=== PATIENT | male | born 1950 | race Caucasian/White ===

== ENCOUNTER 2016-04-03 12:13 | Emergency (ER) | payer MEDICARE, OTHER ==
[~2016-04-03] VITALS: Ht 170.2 cm; Wt 68.2 kg
[~2016-04-03 12:13] MED LIST: ACETAMINOPHEN W1 TA6 PO; ALLERGY4 MG PO; BENADRYL25 M1 PO; BENZTROPINE1 MG PO; BROMOCRIPTINE2.5 MG PO; FLEXERIL 1010 MG/TAB PO; HALDOL 5MG T5 MG/TAB PO; HALDOL5 MG PO; LEVOTHYROXIN0.088 MG PO; NORCO 325 MG-51 TAB PO; PROPRANOLOL10 MG PO; PROVENTIL0.09 MG/A1 IH; TRILEPTAL 150M150 MG; ULTRAM 50MG TAB50 MG PO; ZITHROMAX Z PA250 MG PO
[2016-04-03 12:16] VITALS: TEMP 98.4
[2016-04-03 13:05] LABS: ADJUSTED CALCIUM 9.1 mg/dL (8.4-10.2); ALANINE AMINOTRANSFERASE 43 U/L (21-72); ALBUMIN 4.2 gm/dL (3.5-5.0); ALKALINE PHOSPHATASE 85 U/L (50-136); ANION GAP 10 mmol/L (7-16); BASO # 0.1 (0.0-0.2); BASO % 1.2 % (0.0-2.0); BILIRUBIN,TOTAL 0.9 mg/dL (0.0-1.0); BLOOD UREA NITROGEN 14 mg/dL (9-20); CALCIUM 9.3 mg/dL (8.4-10.2); CARBON DIOXIDE 25 mmol/L (22-30); CHLORIDE 103 mmol/L (98-107); CREATINE KINASE 45 U/L (55-170); CREATININE, serum 1.11 mg/dL (0.66-1.25); EOS # 0.4 (0.0-0.7); EOS % 5.8 % (0-4.0); GLUCOSE 155 mg/dL (74-106); GRAN # 3.3 (1.4-6.5); GRAN % 55.3 % (42.2-75.2); HEMOGLOBIN 14.5 g/dl (13.5-18.0); LIPASE 134 U/L (23-300); LYMPH # 1.9 (1.2-3.4); LYMPH % 31.1 % (20.0-51.0); MEAN CELL VOLUME 95 fl (80.0-100.0); MEAN CORPUSCULAR HEMOGLOBIN 34 pg (27.0-31.0); MEAN CORPUSCULAR HGB CONC 35 g/dl (33.0-37.0); MONO # 0.4 (0.1-0.6); MONO % 6.3 % (1.7-9.3); PLATELET COUNT 183 K/mm3 (130-400); POTASSIUM 3.7 mmol/L (3.4-5.0); REDCELL DISTRIBUTION WIDTH-CV 12.7 % (11.5-14.5); SODIUM 138 mmol/L (137-145); TOTAL PROTEIN 7.3 gm/dL (6.4-8.2)
[2016-04-03 13:17] LABS: B-TYPE NATRIURETIC PEPTIDE 29 pg/mL (0-125)
[2016-04-03 13:20] LABS: TROPONIN-I < 0.012 ng/mL (0.000-0.034)
[2016-04-03] MEDS ORDERED: NAPROSYN500 MG PO (14:00)
[2016-04-03 14:58] VITALS: BP 118/77; PULSE 75
== END 2016-04-03 15:10 | disposition home or self-care (01) ==
LOC: COL.ER 12:13
PROVIDERS: Emergency Medicine
DX: R07.9 Chest pain, unspecified (principal)
CPT/HCPCS: J1885

== ENCOUNTER → 2016-07-10 | Outpatient (CLI) | payer MEDICARE, OTHER ==
[~2016-07-10] MED LIST changes: +NAPROSYN500 MG PO
== END ==
LOC: BHSO 13:53
DX: F20.9 Schizophrenia, unspecified (principal)

== ENCOUNTER → 2017-01-15 | Outpatient (CLI) | payer MEDICARE, OTHER | LOC: BHSO 13:37 | DX: F20.9 Schizophrenia, unspecified (principal) ==

== ENCOUNTER → 2017-08-18 | Outpatient (CLI) | payer MEDICARE, OTHER | LOC: BHSO 13:58 | DX: F25.0 Schizoaffective disorder, bipolar type (principal) | CPT/HCPCS: G0463 ==

== ENCOUNTER → 2017-09-15 | Outpatient (CLI) | payer MEDICARE, OTHER | LOC: MC.RAD 13:15 | DX: N62 Hypertrophy of breast (principal) ==

== ENCOUNTER → 2018-08-12 | Outpatient (CLI) | payer MEDICARE, OTHER | LOC: BHSO 01-12 14:07 | DX: F20.9 Schizophrenia, unspecified (principal) | CPT/HCPCS: G0463 ==

== ENCOUNTER 2018-11-21 15:15 | Outpatient (RCR) | payer MEDICARE, OTHER | END 2018-12-07 10:16 | disposition home or self-care (01) | LOC: MKS.ESL.PT 15:15 | DX: M75.22 Bicipital tendinitis, left shoulder (principal) ==

== ENCOUNTER → 2019-01-05 | Outpatient (CLI) | payer MEDICARE, OTHER | LOC: BHSO 14:14 | DX: F20.9 Schizophrenia, unspecified (principal) | CPT/HCPCS: G0463 ==

== ENCOUNTER → 2020-01-12 | Outpatient (CLI) | payer MEDICARE, OTHER | LOC: BHSO 14:54 | DX: F20.9 Schizophrenia, unspecified (principal) ==

== ENCOUNTER → 2022-07-14 | Outpatient (CLI) | payer MEDICARE | LOC: COL.RAD 14:02 | DX: M54.2 Cervicalgia (principal) ==